=== PATIENT | male | born 1950 | race Caucasian/White ===

== ENCOUNTER → 2018-03-16 | Outpatient (CLI) | payer OTHER ==
[~2018-03-16] MED LIST: LOTREL 10/21 CAPSULE PO; LUPRON DEPOT45 MG IM; METOPROLOL SUCC50 MG PO; SIMVASTATIN20 MG PO
== END | disposition home or self-care (01) ==
LOC: NUC 10:50
DX: N26.1 Atrophy of kidney (terminal) (principal); R94.4 Abnormal results of kidney function studies
CPT/HCPCS: 78707; A9562